=== PATIENT | male | born 1955 | race Caucasian/White ===

== ENCOUNTER 2024-02-20 08:07 | Day surgery (SDC) | payer MEDICARE ==
[~2024-02-20] VITALS: Ht 180.3 cm; Wt 108.0 kg
[~2024-02-20 08:07] MED LIST: Lidocaine 1%-Epineph 1:100000 20 ML MDV ONE; NS 500 ML IV ONE
[2024-02-20] MEDS ORDERED: ASPI81CH PO (08:30)
[2024-02-20] MEDS ORDERED: ICOSAPENT ETHYL1 GM PO (08:31)
[2024-02-20] MEDS ORDERED: ROSUVASTATIN CA10 MG PO (08:31)
[2024-02-20] MEDS ORDERED: ALLOPURINOL100 M1 PO (08:31)
[2024-02-20] MEDS ORDERED: TELMISARTAN80 MG PO (08:31)
[2024-02-20] MEDS ORDERED: NS 500 ML IV ONE (08:52)
--- NOTE | 2024-02-20 09:03 | NUR ---
02/20/24 0903 ROSA Anderson TIMEOUT 0845 RT CARPAL LOCAL STARTED 0845 - 7CC ADMINISTERED RT TRIGGER FINGER LOCAL STARTED 0846 - 4CC ADMINISTERED
[2024-02-20] MEDS ORDERED: propofoL 20 ML IV ONE (09:11)
[2024-02-20] MEDS ORDERED: FentaNYL Citrate 50 MCG/ML 2 ML Injection ONE (09:22)
== END 2024-02-20 10:12 | disposition home or self-care (01) ==
LOC: ORSCSDS 08:07
PROVIDERS: Orthopaedic Surgery
PROC: 01N54ZZ Release Median Nerve, Percutaneous Endoscopic Approach (ICD-10-PCS; principal; 2024-02-20 09:30)
PROC: 0LN70ZZ Release Right Hand Tendon, Open Approach (ICD-10-PCS; principal; 2024-02-20 09:30)
DX: G56.01 Carpal tunnel syndrome, right upper limb (principal); M65.321 Trigger finger, right index finger; I10 Essential (primary) hypertension; I25.10 Atherosclerotic heart disease of native coronary artery without angina pectoris; J45.909 Unspecified asthma, uncomplicated; K21.9 Gastro-esophageal reflux disease without esophagitis; E66.9 Obesity, unspecified; Z68.33 Body mass index [BMI] 33.0-33.9, adult; Z79.82 Long term (current) use of aspirin; Z79.899 Other long term (current) drug therapy
CPT/HCPCS: J2704; J3010; J7040